=== PATIENT | female | born 1985 | race American Indian/Alaskan Native ===

== ENCOUNTER 2021-07-23 10:38 | Emergency (ER) | payer MEDICAID ==
[2021-07-23] MEDS ORDERED: SODIUM CHLORIDE 0.9% 1000 ML 1,000 ML IV ONE ×2 (14:14→16:33)
[2021-07-23] MEDS ORDERED: METOCLOPRAMIDE 10 MG/2 ML INJ IV ONE (14:15)
[2021-07-23 14:22] LABS: Bilirubin,Urine Negative (Negative); Color,Urine Amber (Yellow)
[2021-07-23 14:23] LABS: Blood,Urine Negative (Negative); Protein,Urine >500 mg/dL (Negative)
[2021-07-23 14:41] LABS: RBC,Urine < 1.0 /HPF (0.0-6.0)
[2021-07-23 14:42] LABS: Amorphous Crystals,Urine 4+; Bacteria,Urine 3+ /HPF (Negative); Triple Phosphate Crystal,Urine 4+
[2021-07-23 15:03] VITALS: BP 131/86
--- NOTE | 2021-07-23 15:09 | Emergency Department Report ---
ED HPI - General Chief complaint: Abdominal Pain Stated complaint: 8WKS /NAUSEA/DEHYDRATED Source: patient Mode of arrival: Wheelchair Limitations: No Limitations - History of Present Illness Initial comments: 36-year-old female presents to the ED complaining abdominal pain ,dysuria and vomiting several times. Patient states that she is 8 weeks and has been to the hospital several times for dehydration. Patient is 5 Para 3 A1. Patient states that she has been treated at [facility] but left due to the long wait time. Patient is alert and oriented x3. Denies any vaginal bleeding or vaginal discharge at present time. Patient is not has no active vomiting at present time. Patient states she has tried [id number]-[id number] medication without any relief. Patient states that her WASHER MACHINE is at [facility] Dr. Waller. Patient states that her doctor is working on her some outpatient for UTI. She states that she is unable to take antibiotic for UTI and scheduled to have a PICC line placed within the next 24 to 48 hours. :: Yes Number of weeks : 7 OB History - Current : hyperemesis OB History - Previous Pregnancies: no complications Pre- care: followed by OB - Related Data : 5 Para: 3 Ab: 1 Previous Rx's Medication Instructions Recorded Last Taken Type Ibuprofen [Motrin] 800 mg PO TID PRN #14 tablet 02/26/13 Unknown Rx Sulfamethoxazole/Trimethoprim 1 each PO BID #14 tablet 02/26/13 Unknown Rx [Bactrim DS] Ondansetron [Zofran Odt] 4 mg PO Q8HR 3 Days #12 tab.rapdis 07/23/21 Unknown Rx cephALEXin [Keflex] 500 mg PO Q12HR 10 Days #20 cap 07/23/21 Unknown Rx Allergies Allergy/AdvReac Type Severity Reaction Status Date / Time No Known Allergies Allergy Verified 02/26/13 21:29 ED Review of Systems ROS: Stated complaint: 8WKS /NAUSEA/DEHYDRATED Other details as noted in HPI Constitutional: denies: chills, fever Eyes: denies: eye pain, eye discharge, vision change ENT: denies: ear pain, throat pain Respiratory: denies: cough, shortness of breath, wheezing Cardiovascular: denies: chest pain, palpitations Endocrine: no symptoms reported Gastrointestinal: nausea, vomiting. denies: abdominal pain, diarrhea Genitourinary: denies: urgency, dysuria, discharge Musculoskeletal: denies: back pain, joint swelling, arthralgia Skin: denies: rash, lesions Neurological: denies: headache, weakness, paresthesias Psychiatric: denies: anxiety, depression Hematological/Lymphatic: denies: easy bleeding, easy bruising ED Past Medical Hx - Past Medical History Previous Medical History?: No - Surgical History Past Surgical History?: No - Social History Smoking Status: Never Smoker Substance Use Type: None - Medications Home Medications: Home Medications Medication Instructions Recorded Confirmed Last Taken Type Ibuprofen [Motrin] 800 mg PO TID PRN #14 tablet 02/26/13 Unknown Rx Sulfamethoxazole/Trimethoprim 1 each PO BID #14 tablet 02/26/13 Unknown Rx [Bactrim DS] Ondansetron [Zofran Odt] 4 mg PO Q8HR 3 Days #12 tab.rapdis 07/23/21 Unknown Rx cephALEXin [Keflex] 500 mg PO Q12HR 10 Days #20 cap 07/23/21 Unknown Rx ED Physical Exam - General Limitations: No Limitations General appearance: alert, in no apparent distress - Head Head exam: Present: atraumatic, normocephalic - Eye Eye exam: Present: normal appearance - ENT ENT exam: Present: mucous membranes moist - Neck Neck exam: Present: normal inspection - Respiratory Respiratory exam: Present: normal lung sounds bilaterally. Absent: respiratory distress - Cardiovascular Cardiovascular Exam: Present: regular rate, normal rhythm. Absent: systolic murmur, diastolic murmur, rubs, gallop - GI/Abdominal GI/Abdominal exam: Present: soft, normal bowel sounds - Extremities Exam Extremities exam: Present: normal inspection - Back Exam Back exam: Present: normal inspection - Neurological Exam Neurological exam: Present: alert, oriented X3 - Psychiatric Psychiatric exam: Present: normal affect, normal mood - Skin Skin exam: Present: warm, dry, intact, normal color. Absent: rash ED Course Vital Signs 07/23/21 15:02 Temperature 96.3 F L Pulse Rate 80 Respiratory 16 Rate Blood Pressure 131/86 [Left] O2 Sat by Pulse 98 Oximetry ED Medical Decision Making - Lab Data Result diagrams: 07/23/21 14:26 07/23/21 14:26 - Medical Decision Making 36-year-old female presents to the ED complaining abdominal pain ,dysuria and vomiting several times. Patient states that she is 8 weeks and has been to the hospital several times for dehydration. Patient is 5 Para 3 A1. Patient states that she has been treated at [facility] but left due to the long wait time. Patient is alert and oriented x3. Denies any vaginal bleeding or vaginal discharge at present time. Patient is not has no active vomiting at present time. Patient states she has tried [id number] medication without any relief. Patient states that her WASHER MACHINE is at [facility] Dr. Waller. Patient states that her doctor is working on her some outpatient for UTI. She states that she is unable to take antibiotic for UTI and scheduled to have a PICC line placed within the next 24 to 48 hours. Patient had normal saline x2l . Reglan 10 mg IV, Zofran 4 mg ODT. Physical examination was unremarkable. Patient had no active vomiting during ED stay. At Time of discharge patient states she feels better. Advised patient to follow-up with Dr. Waller her WASHER MACHINE at [facility]. Rechecked the patient is resting quietly quietly and comfortable and feeling be tter. I discussed the results of diagnostic study, my clinical impression and the plan for further treatment with the patient. Patient agrees with plan and discharge at this present time. All question addressed. I have given the patient instruction regarding a diagnosis ,expectation ,follow- up and return precaution. I explained to the patient that emergent condition may arise and to return to the ED for new worsen and any new persisting condition. I have explained the importance of following up with the primary care physician or referral physician listed below has instructed. The patient verbalized understanding of discharge instruction. Abnormal Lab Results 07/23/21 07/23/21 07/23/21 14:26 14:26 14:26 WBC 8.1 RBC 4.72 Hgb 14.5 H Hct 42.9 MCV 91 MCH 31 MCHC 34 RDW 13.3 Plt Count 181 Lymph % (Auto) 18.4 [place] % (Auto) 9.9 H Eos % (Auto) 1.1 Baso % (Auto) 0.5 Lymph # (Auto) 1.5 [place] # (Auto) 0.8 Eos # (Auto) 0.1 Baso # (Auto) 0.0 Seg Neutrophils % 70.1 H Seg Neutrophils # 5.7 Sodium 137 Potassium 3.6 Chloride 101.0 Carbon Dioxide 21 L Anion Gap 19 BUN 14 Creatinine 0.6 Estimated GFR > 60 BUN/Creatinine Ratio 23 Glucose 89 Calcium 9.7 Total Bilirubin 0.80 Direct Bilirubin 0.2 Indirect Bilirubin 0.6 AST 15 ALT 11 Alkaline Phosphatase 54 Total Protein 7.1 Albumin 4.8 Albumin/Globulin Ratio 2.1 Amylase 69 Lipase 24 HCG, Quant 349680 H Urine Color Urine Turbidity Urine pH Ur Specific [place] Urine Protein Urine Glucose (UA) Urine Ketones Urine Blood Urine Nitrite Urine Bilirubin Urine Urobilinogen Ur Leukocyte Esterase Urine WBC (Auto) Urine RBC (Auto) U Epithel Cells (Auto) Urine Bacteria (Auto) Triple Phos Crystals Amorphous Crystals 07/23/21 Unknown WBC RBC Hgb Hct MCV MCH MCHC RDW Plt Count Lymph % (Auto) [place] % (Auto) Eos % (Auto) Baso % (Auto) Lymph # (Auto) [place] # (Auto) Eos # (Auto) Baso # (Auto) Seg Neutrophils % Seg Neutrophils # Sodium Potassium Chloride Carbon Dioxide Anion Gap BUN Creatinine Estimated GFR BUN/Creatinine Ratio Glucose Calcium Total Bilirubin Direct Bilirubin Indirect Bilirubin AST ALT Alkaline Phosphatase Total Protein Albumin Albumin/Globulin Ratio Amylase Lipase HCG, Quant Urine Color [place] Urine Turbidity Cloudy Urine pH 8.0 H Ur Specific [place] 1.020 Urine Protein >500 Urine Glucose (UA) Negative Urine Ketones Trace Urine Blood Negative Urine Nitrite Negative Urine Bilirubin Negative Urine Urobilinogen 2.0 Ur Leukocyte Esterase Large Urine WBC (Auto) 20.0 H Urine RBC (Auto) < 1.0 U Epithel Cells (Auto) 10.0 Urine Bacteria (Auto) 3+ Triple Phos Crystals 4+ Amorphous Crystals 4+ Critical care attestation.: If time is entered above; I have spent that time in minutes in the direct care of this critically ill patient, excluding procedure time. ED Disposition Clinical Impression: Acute urinary tract infection, Hyperemesis gravidarum Disposition: HOME / SELF CARE / HOMELESS Is pt being admited?: No Does the pt Need Aspirin: No Condition: Stable Instructions: Abdominal Pain (ED), and Urinary Tract Infection, Hyperemesis Gravidarum Additional Instructions: Follow-up with WASHER MACHINE at [facility] May take [id number] vitamin B6 25 mg by mouth every 6 hours May also take gingerroot [id number] Take antibiotics his prescribed Prescriptions: cephALEXin [Keflex] 500 mg PO Q12HR 10 Days #20 cap Ondansetron [Zofran Odt] 4 mg PO Q8HR 3 Days #12 tab.rapdis Referrals: PRIMARY CARE, [Primary Care Provider] - 3-5 Days [facility] [Provider Group] - 3-5 Days Time of Disposition: 17:53
[2021-07-23 15:23] LABS: Alanine Aminotransferase 11 units/L (7-56); Albumin 4.8 g/dL (3.9-5); Bilirubin,Direct 0.2 mg/dL (0-0.2); Blood Urea Nitrogen 14 mg/dL (7-17); Calcium 9.7 mg/dL (8.4-10.2); Hemolysis Index 8
[2021-07-23 15:27] LABS: Basophils % (Auto) 0.5 % (0.0-1.8); Eosinophils # (Auto) 0.1 K/mm3 (0.0-0.4); Eosinophils % (Auto) 1.1 % (0.0-4.3); Hematocrit 42.9 % (30.3-42.9); Hemoglobin 14.5 gm/dl (10.1-14.3); Lymphocytes # (Auto) 1.5 K/mm3 (1.2-5.4); Lymphocytes % (Auto) 18.4 % (13.4-35.0); Mean Corpuscular HGB Conc 34 % (30-34); Mean Corpuscular Volume 91 fl (79-97); Monocytes # (Auto) 0.8 K/mm3 (0.0-0.8); Monocytes % (Auto) 9.9 % (0.0-7.3); Platelet Count 181 K/mm3 (140-440); Red Blood Count 4.72 M/mm3 (3.65-5.03); Red Cell Distribution Width 13.3 % (13.2-15.2)
[2021-07-23 15:35] LABS: BUN/Creatinine Ratio 23
[2021-07-23] MEDS ORDERED: ONDANSETRON 4 MG ODT TAB PO ONE (17:04)
== END 2021-07-23 20:04 | disposition home or self-care (01) ==
LOC: ED 10:38
DX: O21.0 Mild hyperemesis gravidarum (principal); O23.41 Unspecified infection of urinary tract in pregnancy, first trimester; N39.0 Urinary tract infection, site not specified; Z3A.01 Less than 8 weeks gestation of pregnancy; Z79.899 Other long term (current) drug therapy
CPT/HCPCS: 36415; 80048; 80076; 81001; 82150; 83690; 84702; 85025; 87086; 96361; 96374; 99283; J2765; J7030; J3490; Q0162